=== PATIENT | male | born 1980 | race Caucasian/White ===

== ENCOUNTER 2017-02-07 02:56 | Emergency (ER) | payer SELFPAY ==
[2017-02-07 08:10] VITALS: BP 91/61
== END 2017-02-07 08:10 | disposition home or self-care (01) ==
LOC: ED 02:56
DX: F10.129 Alcohol abuse with intoxication, unspecified (principal); R11.10 Vomiting, unspecified
CPT/HCPCS: 82962; J2310; J2405; J3486; J7030